=== PATIENT | male | born 1995 | race Caucasian/White ===

== ENCOUNTER 2023-06-20 06:29 | Emergency (ER) | payer SELFPAY ==
[2023-06-20 06:40] VITALS: BP 135/81
[2023-06-20 07:04] VITALS: BMI 27.2
--- NOTE | 2023-06-20 07:27 | ED.GENMED ---
History of Present Illness
General
Chief Complaint: Eye Problems
Source: patient and spouse
Time Seen by Provider: 06/20/23 07:09
Travel History
Have you had any contact with someone who has COVID-19?: No
Do you have any symptoms of coronavirus? Fever > 100 degrees, chills, cough, shortness of breath, sore throat, loss of taste or smell, muscle aches, or headache?: No
History of Present Illness
History of Present Illness:
28-year-old male with no significant past medical history presents to the emergency department for evaluation after his child accidentally poked him in the left eye, continued foreign body sensation and pain since then. Patient states pain
and tearing are worse when attempting to hold open his left eye. Patient does not wear contact lenses or glasses. No other injuries were sustained.
Past History
Past History
ED Past Medical History: None
ED Past Surgical History: None
Social History
Tobacco: Non-smoker
Alcohol: Occasional
Drug: None
Personal: Single
Living: with family
Employment: Employed
Review of Systems
Review of Systems
All Other Systems: ROS reviewed and negative except as documented in HPI and ROS
Phy Exam
Physical Exam
Physical Exam:
GENERAL: Alert , appears uncomfortable
EYE: conjunctiva mildly injected on the left, pupils 4 mm bilateral, PERRL, EOMI, no periorbital erythema or edema, no visualized foreign body
Visual acuity: Right eye 20/20, left eye 20/20
Fluorescein stain: Timberlake shaped 2-1/2 mm corneal abrasion from the 7:00 to 9 o'clock position just lateral to the pupil overlying the iris
Head: Normocephalic atraumatic
NECK: Supple,
ENT: mmm.
LUNGS: no acute respiratory distress
NEUROLOGICAL: Alert and oriented
SKIN: Warm and dry, skin intact.
MUSCULOSKELETAL: well perfused.
PSYCH: Normal and appropriate interaction.
Scores
Heart Failure Risk
Heart Failure Risk Score: Not Applicable
Heart Score for Chest Pain Patients
STEMI patient?: Not applicable
Withdrawal Assessment of Alcohol
Withdrawal Assessment Completed?: Not applicable
Course
Orders/Labs/Results
Orders:
Orders
06/20/23 07:29
Fluorescein Sodium [Ful-Catalina] 1 mg .ROUTE .STK-MED ONE
06/20/23 07:32
Visual Acuity- Treatment ONCE
Vital Signs
Initial and Last Documented VS:
Initial Vital Signs
Temp Pulse Resp BP Pulse Ox
98.7 F 62 18 135/81 96
06/20/23 06:40 06/20/23 06:40 06/20/23 06:40 06/20/23 06:40 06/20/23 06:40
Last Documented Vital Signs
Temp Pulse Resp BP Pulse Ox
98.7 F 62 18 135/81 96
06/20/23 06:40 06/20/23 06:40 06/20/23 06:40 06/20/23 06:40 06/20/23 06:40
MDM/Problems Addressed
Differential Diagnosis Includes:
Corneal abrasion, foreign body, less concern for glaucoma, iritis
MDM/Problems Addressed:
28-year-old male present emergency ferment for evaluation of left eye injury after accidentally getting poked in the eye. I did instill some tetracaine into the left eye and patient had significant relief of pain upon administration. Fluorescein
stain did show a 2 and half millimeter abrasion to the left eye. No visual deficits noted. Will prescribe the patient antibiotic drops. Advised NSAIDs/Tylenol and cool compresses as needed for pain. Information for ophthalmology was provided.
Patient is otherwise stable for discharge home and aware of return precautions to the emergency department.
*Pulse Oximetry
Patient hypoxic: no
*Critical Care Note
Total Time (30-74mins, 75-104mins- exclusive of procedures): Not Applicable
ED Attending Note
-
Portions of this chart may have been created with voice recognition software.� Occasional wrong word or��sound alike� substitutions may have occurred due to the inherent limitations of voice recognition software.
Discharge Plan
Departure
Patient Disposition: Home (Routine Discharge)
Date of Disposition: 06/20/23
Time of Disposition: 07:28
Patient with high blood pressure during this ER visit?: No
Discharge Problem:
Abrasion of cornea, left
Instructions: Corneal Abrasion (DC)
Prescriptions:
New
ciprofloxacin HCl 0.3 % drops
2 drp ophthalmic (eye) Q4H 5 Days Qty: 10 0RF
No Action
Aleve
2 tab PO DAILY
acetaminophen 325 MG tablet
650 mg PO Q4HPRN PRN (Reason: pain)
methylphenidate HCl 10 MG tablet
10 mg PO .AFTERNOON
lisdexamfetamine [Vyvanse] 70 MG capsule
70 mg PO DAILY
Vitamin Multiple
1 tab PO DAILY
Referrals:
Philippe Tripp MD [Active] - (Opthalmology)
NONE,* [Family Provider] -
Stand Alone Forms: Return to Work
Interventions
Interventions:
*Risk Screen - Suicide Last Done: 06/20/23 06:40
*General Assessment Last Done: 06/20/23 06:40
*Neglect/Abuse Screening Last Done: 06/20/23 06:40
ED- Fall Risk Assessment Last Done: 06/20/23 07:04
*ED COVID-19 Vaccine History Last Done: 06/20/23 06:40
*Nursing Disposition Last Done: 06/20/23 07:37
Discharge Date and Time
Discharge Date/Time: 06/20/23 07:38
== END 2023-06-20 07:38 | disposition home or self-care (01) ==
LOC: EMR 06:29
PROVIDERS: EMERGENCY PHYSICIAN Emergency Medicine
DX: S05.02XA Injury of conjunctiva and corneal abrasion without foreign body, left eye, initial encounter (principal); H57.8A2 Foreign body sensation, left eye; X58.XXXA Exposure to other specified factors, initial encounter
CPT/HCPCS: 99282

== ENCOUNTER 2024-09-13 23:32 | Emergency (ER) | payer SELFPAY ==
[2024-09-13 23:42] VITALS: BP 139/84
[2024-09-14 04:44] VITALS: BMI 26.9
--- NOTE | 2024-09-14 04:54 | ED.GENMED ---
History of Present Illness
General
Chief Complaint: Eye Problems
Source: patient
Exam Limitations: none
Time Seen by Provider: 09/14/24 04:43
Nursing documentation reviewed up to this point in time: agreed with
History of Present Illness
History of Present Illness:
This is a 29 year-old male with a past medical history of corneal abrasion in present emergency department with concerns of left eye foreign body sensation and irritation. Patient states that this started a few hours ago. Patient reports that she
works for a [employer] and reports that he was Trying to break up a container of powdered industrial dishwashing detergent when he was breaking up the detergent and some flakes of the detergent powder went into his left eye. Patient reports that
he irrigated his eye was saline at the time. Patient reports that his coworker also had medical grade saline and also helped him irrigate his eye. Patient reports that since initial injury, the pain and irritation has improved, however, is still
present. He does notice some blurry vision, but denies any visual loss. He needs any headaches. 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
Past History
Past History
ED Past Medical History: None
ED Past Surgical History: None
Social History
Tobacco: Non-smoker
Alcohol: Occasional
Drug: None
Personal: Single
Living: with family
Employment: Employed
Review of Systems
Review of Systems
All Other Systems: ROS reviewed and negative except as documented in HPI and ROS
Phy Exam
Physical Exam
Physical Exam:
General: Patient is well appearing and in no acute distress; non-toxic
Skin: Warm and dry, no rashes or lesions
Head: Normocephalic, atraumatic
Eyes: Sclera non-icteric. EOMs intact. Scleral injection noted to left eye. Fluorecin staining reveals small circular corneal abrasion noted to medial aspect of left cornea. No evidence of corneal ucler. Negative sidel sign. No evidence of ocular
foreign body with eyelid inversion. Normal pH.
Cardiac: Regular rate
Peripheral Vascular: No lower extremity swelling or edema
Pulm: Normal respiratory effort
Neuro: CN II-XII intact, no focal neurologic deficits.
Psychiatric: Appropriate mood and affect.
Course
Orders/Labs/Results
Orders:
Orders
09/14/24 04:36
Visual Acuity- Treatment ONCE
09/14/24 04:51
Fluorescein Sodium [Ful-Catalina] 1 mg OPHTH NOW STA
Tetracaine HCl [Tetracaine 0.5% Ophthalmic Solution] See Dose Instructions OPHTH ONCE ONE
09/14/24 04:59
Purified Water Eye Wash [Dacriose Eye Wash Solution] See Dose Instructions OPHTH NOW STA
Vital Signs
Initial and Last Documented VS:
Initial Vital Signs
Temp Pulse Resp BP Pulse Ox
97.9 F 60 16 139/84 98
09/13/24 23:42 09/13/24 23:42 09/13/24 23:42 09/13/24 23:42 09/13/24 23:42
Last Documented Vital Signs
Temp Pulse Resp BP Pulse Ox
97.9 F 60 14 132/86 97
09/13/24 23:42 09/14/24 05:55 09/14/24 05:55 09/14/24 05:55 09/14/24 05:55
MDM/Problems Addressed
Differential Diagnosis Includes:
corneal abrasion, chemical exposure, ocular foreign body
MDM/Problems Addressed:
This is a 29 year-old male with a past medical history of corneal abrasion in present emergency department with concerns of left eye foreign body sensation and irritation. This occurred after exposure to powered detergent. Symptoms improve with
tetracaine. On exam his left scleral is injected. Fluorecin staining reveals small circular corneal abrasion noted to medial aspect of left cornea. No evidence of corneal ucler. Negative sidel sign. No evidence of ocular foreign body with eyelid
inversion. Normal pH. I personally thoroughly irrigated patient's left eye with a bottle of eye wash. Eye drops sent to pharmacy. Optho follow up discussed.
Chronic conditions affecting care:
n/a
*Pulse Oximetry
Patient hypoxic: no
*Critical Care Note
Total Time (30-74mins, 75-104mins- exclusive of procedures): Not Applicable
Patient Management
Escalation/DeEscalation of care consider admission/obs:
admit not indicated
ED Attending Note
-
Portions of this chart may have been created with voice recognition software.� Occasional wrong word or��sound alike� substitutions may have occurred due to the inherent limitations of voice recognition software.
Discharge Plan
Departure
Patient Disposition: Home (Routine Discharge)
Date of Disposition: 09/14/24
Time of Disposition: 05:40
Patient with high blood pressure during this ER visit?: Yes
Condition: Good
Discharge Problem:
Corneal abrasion
Instructions: Corneal Abrasion (DC), BLOOD PRESSURE
Prescriptions:
New
ciprofloxacin HCl 0.3 % drops
2 drp ophthalmic (eye) Q4H 5 Days Qty: 5 0RF
No Action
Aleve
2 tab PO DAILY
acetaminophen 325 MG tablet
650 mg PO Q4HPRN PRN (Reason: pain)
methylphenidate HCl 10 MG tablet
10 mg PO .AFTERNOON
lisdexamfetamine [Vyvanse] 70 MG capsule
70 mg PO DAILY
Vitamin Multiple
1 tab PO DAILY
ciprofloxacin HCl 0.3 % drops
2 drp ophthalmic (eye) Q4H 5 Days Qty: 10 0RF
Referrals:
Gemma Flores MD [Family Provider] -
Chiquis Smith MD [Active] - Call in 1-3 days for appt
Stand Alone Forms: Return to Work
Activity Restrictions/Additional Instructions:
Please use ibuprofen as needed for pain. Eyedrops have been sent to your pharmacy. Please instill 2 drops every 4 hours for 5 days.
Please call attached number to follow-up with ophthalmology.
PLEASE RETURN TO THE EMERGENCY DEPARTMENT SHOULD YOU DEVELOP VISUAL LOSS, INCREASING PAIN, HEADACHES, INTRACTABLE NAUSEA OR VOMITING, OR ANY OTHER SIGNS OR SYMPTOMS WORRISOME TO YOU.
Interventions
Interventions:
*Risk Screen - Suicide Last Done: 09/13/24 23:42
*General Assessment Last Done: 09/13/24 23:42
*Neglect/Abuse Screening Last Done: 09/14/24 05:40
*ED- Fall Risk Assessment Last Done: 09/13/24 23:42
*ED COVID-19 Vaccine History Last Done: 09/13/24 23:42
*Nursing Disposition Last Done: 09/14/24 06:00
Discharge Date and Time
Discharge Date/Time: 09/14/24 06:00
Print Language: BHUTANESE
[2024-09-14 05:55] VITALS: BP 132/86
[2024-09-14 05:56] VITALS: BP 132/86
[2024-09-14] MEDS: DACRIOSE EYE WASH SOLUTION 120 ML OPHTH (05:57)
[2024-09-14] MEDS: TETRACAINE 0.5% OPHTHALMIC SOLUTION 1 DROP OPHTH (05:58)
== END 2024-09-14 06:00 | disposition home or self-care (01) ==
LOC: EMR 23:32
PROVIDERS: EMERGENCY PHYSICIAN Emergency Medicine; FAMILY PHYSICIAN Family Medicine
DX: S05.02XA Injury of conjunctiva and corneal abrasion without foreign body, left eye, initial encounter (principal); X58.XXXA Exposure to other specified factors, initial encounter; Y92.129 Unspecified place in nursing home as the place of occurrence of the external cause; Y99.0 Civilian activity done for income or pay
CPT/HCPCS: 99283

== ENCOUNTER 2025-02-01 19:09 | Emergency (ER) | payer SELFPAY ==
[2025-02-01 19:12] VITALS: BP 132/77
--- NOTE | 2025-02-01 20:35 | ED.GENMED ---
History of Present Illness
General
Chief Complaint: Skin Surface Trauma
Source: patient
Exam Limitations: none
Time Seen by Provider: 02/01/25 20:30
History of Present Illness
History of Present Illness:
29yo right hand dominant male with no significant past medical history presenting for evaluation of a right index finger laceration. Patient was cutting food with a knife at work when he accidentally cut his distal index finger. Bleeding is
controlled on arrival. He has no paresthesias. Unknown last Tdap.
Past History
Past History
ED Past Medical History: None
ED Past Surgical History: None
Social History
Tobacco: Non-smoker
Alcohol: Occasional
Drug: None
Personal: Single
Living: with family
Employment: Employed
Phy Exam
General Physical Exam
General Presentation: well appearing and no apparent distress
General Skin: warm and dry
General Habitus: normal
General Mental: alert
Neurological Exam
Neurological Exam: alert
Martell Coma Scale
Eye Opening: Spontaneous
Verbal Response: Oriented
Motor Response: Obeys Commands
GCS Total Score: 15
Skin Exam
Skin Exam: other (Small 1 cm superficial laceration noted to the lateral aspect of the distal R index finger. No active bleeding. ROM of PIP and DIP intact. Cap refill and sensation intact at fingertip.)
Course
Orders/Labs/Results
Orders:
Orders
02/01/25 20:34
Tetanus/Diphth/Acelpertussis [Adacel] 0.5 ml IM .ONCE ONE
Vital Signs
Initial and Last Documented VS:
Initial Vital Signs
Temp Pulse Resp BP Pulse Ox
98.2 F 54 18 132/77 94
02/01/25 19:12 02/01/25 19:12 02/01/25 19:12 02/01/25 19:12 02/01/25 19:12
Last Documented Vital Signs
Temp Pulse Resp BP Pulse Ox
98.2 F 52 18 117/67 99
02/01/25 19:12 02/01/25 20:54 02/01/25 20:54 02/01/25 20:54 02/01/25 20:54
MDM/Problems Addressed
Differential Diagnosis Includes:
29yoM here with a R index finger laceration. Superficial 1cm laceration on exam without active bleeding. No evidence of tendon/neurovascular injury and ROM is normal. Wound was irrigated and skin glue applied. Tdap updated. Home wound care
discussed. Advised return to the ED with any signs of infection.
*Pulse Oximetry
SaO2: 94
Oxygen Mode of Delivery: Room air
Patient hypoxic: no
*Critical Care Note
Total Time (30-74mins, 75-104mins- exclusive of procedures): Not Applicable
ED Attending Note
-
Portions of this chart may have been created with voice recognition software.� Occasional wrong word or��sound alike� substitutions may have occurred due to the inherent limitations of voice recognition software.
Discharge Plan
Departure
Patient Disposition: Home (Routine Discharge)
Date of Disposition: 02/01/25
Time of Disposition: 20:58
Patient with high blood pressure during this ER visit?: No
Discharge Problem:
Laceration of right index finger
Instructions: Laceration Repair With Glue (DC)
Prescriptions:
No Action
Aleve
2 tab PO DAILY
acetaminophen 325 MG tablet
650 mg PO Q4HPRN PRN (Reason: pain)
methylphenidate HCl 10 MG tablet
10 mg PO .AFTERNOON
lisdexamfetamine [Vyvanse] 70 MG capsule
70 mg PO DAILY
Vitamin Multiple
1 tab PO DAILY
ciprofloxacin HCl 0.3 % drops
2 drp ophthalmic (eye) Q4H 5 Days Qty: 10 0RF
ciprofloxacin HCl 0.3 % drops
2 drp ophthalmic (eye) Q4H 5 Days Qty: 5 0RF
Referrals:
UNKNOWN - PT DOES,NOT KNOW [Unknown Provider]
Activity Restrictions/Additional Instructions:
Try to keep wound dry over the next few days.
Return to the ER with any signs of infection (warmth, redness, drainage).
Interventions
Interventions:
*Risk Screen - Suicide Last Done: 02/01/25 19:14
*General Assessment Last Done: 02/01/25 20:07
*Neglect/Abuse Screening Last Done: 02/01/25 19:14
*ED- Fall Risk Assessment Last Done: 02/01/25 20:07
*ED COVID-19 Vaccine History Last Done: 02/01/25 19:14
*ED Influenza Vaccine History Last Done: 02/01/25 19:14
*Nursing Disposition Last Done: 02/01/25 21:10
ED-Skin Assessment Last Done: 02/01/25 20:07
Discharge Date and Time
Discharge Date/Time: 02/01/25 21:10
Print Language: ETHIOPIAN
[2025-02-01] MEDS: ADACEL 0.5 ML IM (20:49)
[2025-02-01 20:54] VITALS: BP 117/67
== END 2025-02-01 21:10 | disposition home or self-care (01) ==
LOC: EMR 19:09
PROVIDERS: EMERGENCY PHYSICIAN Emergency Medicine; FAMILY PHYSICIAN Family Medicine
DX: S61.210A Laceration without foreign body of right index finger without damage to nail, initial encounter (principal); W26.0XXA Contact with knife, initial encounter; Y99.0 Civilian activity done for income or pay; Z23 Encounter for immunization
CPT/HCPCS: 90471; 12001; 99282; 90715